=== PATIENT | male | born 2000 | race Caucasian/White ===

== ENCOUNTER 2023-07-17 13:09 | Emergency (ER) | payer BC ==
[2023-07-17] MEDS ORDERED: IBUPROFEN 600 MG TAB PO STA (14:44)
[2023-07-17] MEDS ORDERED: ACETAMINOPHEN TAB 500 MG TAB PO STA (14:44)
--- NOTE | 2023-07-17 14:46 | ED ---
Fever HPI - General Source: patient, RN notes reviewed Mode of arrival: ambulatory Limitations: no limitations <Davian Swenson - Last Filed: 07/17/23 14:45> - History of Present Illness MD Complaint: fever -: days(s) Temperature Source: subjective Associated Symptoms: headache, cough Treatments Prior to Arrival: other (Dexamethasone) <Itz Tomlinson - Last Filed: 07/19/23 12:29> - General Chief Complaint: Fever Stated Complaint: Covid+, symptoms getting worse Time Seen by Provider: 07/17/23 14:45 - History of Present Illness Initial Comments: 23-year-old male presents emergency Department chief complaint of fever. Patient states he tested positive for covid 4 days ago. He states she's had symptoms for 6 days. Patient was seen at a [facility] urgent [facility]. Patient states is not having recent Tylenol Motrin. (Davian Swenson) This patient is 23-year-old man who is here he states because he is continuing to have cough and also headache despite taking the medication he was prescribed. Patient states that he started having symptoms on the first of this month, which included fevers, cough, body ache, headache. He went to the clinic on the second and was diagnosed with Covid infection. They gave him dexamethasone and he is taking mucinex. He states he is continuing to have symptoms. Patient describes the headache as being right frontal, moderately severe, intermittent, lasting about 15-30 seconds at a time and then getting better. He states that pain is sharp. He has not noted relieving factors. Seems to be worse when he coughs. (Itz Tomlinson) - Related Data Previous Rx's Medication Instructions Recorded Azithromycin [Zithromax] 0 mg PO DIRECTED #6 tab 07/17/23 Allergies Allergy/AdvReac Type Severity Reaction Status Date / Time No Known Allergies Allergy Verified 07/17/23 14:10 Review of Systems ROS Other: All systems not noted in ROS Statement are negative. <Davian Swenson - Last Filed: 07/17/23 14:45> ROS Other: All systems not noted in ROS Statement are negative. Constitutional: Reports: fever Eyes: Denies: vision change ENT: Reports: congestion Respiratory: Reports: cough. Denies: dyspnea, hemoptysis Cardiovascular: Denies: chest pain, palpitations, syncope Gastrointestinal: Denies: abdominal pain, vomiting, diarrhea Genitourinary: Denies: dysuria, hematuria Musculoskeletal: Denies: back pain Skin: Denies: rash Neurological: Reports: headache. Denies: weakness, numbness, paresthesias <Itz Tomlinson - Last Filed: 07/19/23 12:29> ROS Statement: Those systems with pertinent positive or pertinent negative responses have been documented in the HPI. Past Medical History Additional Past Medical History / Comment(s): COVID Past Surgical History: No Surgical Hx Reported Past Psychological History: No Psychological Hx Reported Smoking Status: Never smoker Past Alcohol Use History: None Reported Past Drug Use History: None Reported <Davian Swenson - Last Filed: 07/17/23 14:45> General Exam Limitations: no limitations <Davian Swenson - Last Filed: 07/17/23 14:45> General appearance: alert, in no apparent distress Head exam: Present: atraumatic, normocephalic Eye exam: Present: normal appearance. Absent: scleral icterus, conjunctival injection Neck exam: Present: normal inspection, full ROM. Absent: meningismus Respiratory exam: Present: rales. Absent: respiratory distress, wheezes, rhonchi, stridor, accessory muscle use, decreased breath sounds Cardiovascular Exam: Present: normal rhythm, tachycardia (Rate 104 at my exam), normal heart sounds. Absent: systolic murmur, diastolic murmur, rubs, gallop GI/Abdominal exam: Present: soft. Absent: distended, tenderness, guarding, rebound, rigid, mass Extremities exam: Present: normal inspection, normal capillary refill. Absent: pedal edema, calf tenderness Back exam: Present: normal inspection. Absent: CVA tenderness (R), CVA tenderness (L) Neurological exam: Present: alert Skin exam: Present: warm, dry, intact, normal color. Absent: rash <Itz Tomlinson - Last Filed: 07/19/23 12:29> - General Exam Comments Initial Comments: Visual Physical Exam Vital signs reviewed General: Well-appearing, nontoxic, no acute distress. Head: Normocephalic, atraumatic Eyes: PERRLA, EOMI ENT: Airway patent Chest: Nonlabored breathing Skin: No visual rash, normal skin tone Neuro: Alert and oriented 3 Musculoskeletal: No gross abnormalities (Davian Swenson) Course Vital Signs 07/17/23 07/17/23 07/17/23 14:07 15:09 15:14 Temperature 102.9 F H 103.1 F H Pulse Rate 111 H 97 Respiratory 22 18 18 Rate Blood Pressure 111/68 129/86 O2 Sat by Pulse 99 99 Oximetry 07/17/23 07/17/23 15:52 16:39 Temperature 102.9 F H 99.4 F Pulse Rate 100 89 Respiratory 16 18 Rate Blood Pressure 109/68 O2 Sat by Pulse 98 96 Oximetry Medical Decision Making <Davian Swenson - Last Filed: 07/17/23 14:45> <Itz Tomlinson - Last Filed: 07/19/23 12:29> - Medical Decision Making I performed the quick note portion of this chart signed Davian Swenson PA-C (Davian Swenson) This patient is 23-year-old man here with fevers, headache, myalgias, cough and recent diagnosis of COVID-19 infection. The patient did have significant relief here after medication, and stated that the headache had resolved. The workup here does reveal right lower lobe infiltrate, and as it does appear more consistent with traditional pneumonia the patient is started on a course of antibiotics. Discussed appropriate further care and follow-up as well as return parameters. The patient had chest x-ray which I interpreted as showing right lower lobe infiltrate. Was pt. sent in by a medical professional or institution (JUSTICE [facility], NITRILES LAB TECHNICIAN, urgent care, hospital, or alf...) When possible be specific @ -[No] Did you speak to anyone other than the patient for history (EMS, parent, family, police, friend...)? What history was obtained from this source @ -[The patient's mother did contribute history Did you review nursing and triage notes (agree or disagree)? Why? @ -[I reviewed and agree with nursing and triage notes] Were old charts reviewed (outside hosp., previous admission, EMS record, old EKG, old radiological studies, urgent care reports/EKG's, alf records)? Report findings @ -[No old charts were reviewed] Differential Diagnosis (chest pain, altered mental status, abdominal pain women, abdominal pain men, vaginal bleeding, weakness, fever, dyspnea, syncope, headache, dizziness, GI bleed, back pain, seizure, CVA, palpatations, mental health, musculoskeletal)? @ -Differential Fever: Pneumonia, viral URI, endocarditis, myocarditis, pericarditis, otitis, sinusitis, peritonsillar Abscess, retropharyngeal Abscess, epiglottitis, peritonitis, appendicitis, Neida cystitis, diverticulitis, hepatitis, colitis, UTI, PID, TOA, pyelonephritis, prostatitis, epididymitis, meningitis, encephalitis, pulmonary embolism, CVA, thyroid storm, pancreatitis, adrenal regina is, cavernous sinus thrombosis, this is not meant to be an all-inclusive list. EKG interpreted by me (3pts min.). @ -[ X-rays interpreted by me (1pt min.). @ -[I interpreted as above CT interpreted by me (1pt min.). @ -[None done] U/S interpreted by me (1pt. min.). @ -[None done] What testing was considered but not performed or refused? (CT, X-rays, U/S, labs)? Why? @ -[None] What meds were considered but not given or refused? Why? @ -[None] Did you discuss the management of the patient with other professionals (professionals i.e. , PA, N[employer]RILES LAB TECHNICIAN, lab, RT, psych nurse, certified social workers in health care, stenotype machine operator, teacher, loan workout officer, case operator)? Give summary @ -[No] Was smoking cessation discussed for >3mins.? @ -[No] Was critical care preformed (if so, how long)? @ -[No] Were there social determinants of health that impacted care today? How? (Homelessness, low income, unemployed, alcoholism, drug addiction, transportation, low edu. Level, literacy, decrease access to med. care, longterm, rehab)? @ -[No] Was there de-escalation of care discussed even if they declined (Discuss DNR or withdrawal of care, Hospice)? DNR status @ -[No] What co-morbidities impacted this encounter? (DM, HTN, Smoking, COPD, CAD, Cancer, CVA, ARF, Chemo, Hep., AIDS, mental health diagnosis, sleep apnea, morbid obesity)? @ -[None] Was patient admitted / discharged? Hospital course, mention meds given and route, prescriptions, significant lab abnormalities, going to OR and other pertinent info. @ -[As above Undiagnosed new problem with uncertain prognosis? @ -[No] Drug Therapy requiring intensive monitoring for toxicity (Heparin, Nitro, Insulin, Cardizem)? @ -[No] Were any procedures done? @ -[No] Diagnosis/symptom? @ -[Acute right lower lobe pneumonia Acute COVID-19 infection Acute, or Chronic, or Acute on Chronic? @ -[default] Uncomplicated (without systemic symptoms) or Complicated (systemic symptoms)? @ -[Uncomplicated Side effects of treatment? @ -[No] Exacerbation, Progression, or Severe Exacerbation? @ -[No] Poses a threat to life or bodily function? How? (Chest pain, USA, MS, pneumonia, PE, COPD, DKA, ARF, appy, cholecystitis, CVA, Diverticulitis, Homicidal, Suicidal, threat to staff... and all critical care pts) @ -Unlikely at this point (Itz Tomlinson) Disposition <Davian Swenson - Last Filed: 07/17/23 14:45> Is patient prescribed a controlled substance at d/c from ED?: No <Itz Tomlinson - Last Filed: 07/19/23 12:29> Clinical Impression: COVID-19, Pneumonia Disposition: HOME SELF-CARE Condition: Good Instructions (If sedation given, give patient instructions): Pneumonia (ED), COVID-19 (Coronavirus Disease 2019) (ED) Prescriptions: Azithromycin [Zithromax] 0 mg PO DIRECTED #6 tab Referrals: None,Stated [Primary Care Provider] - 1-2 days
--- NOTE | 2023-07-17 15:06 | XR ---
EXAMINATION TYPE: XR chest 2V DATE OF EXAM: 07/17/2023 3:02 PM COMPARISON: Chest radiographs from 02/16/2007 TECHNIQUE: XR chest 2V Frontal and lateral views of the chest. CLINICAL INDICATION:Male, 23 years old with history of sob,covid; FINDINGS: Lungs/Pleura: No pleural effusion or pneumothorax. Right lower lobe patchy airspace opacities. Pulmonary vascularity: Unremarkable. Heart/mediastinum: Cardiomediastinal silhouette is unremarkable. Musculoskeletal: No acute osseous pathology. IMPRESSION: Right lower lobe patchy airspace opacities consistent with pneumonia.
[2023-07-17] MEDS ORDERED: METOCLOPRAMIDE 5 MG/ML 2 ML VIAL IM STA (15:18)
[2023-07-17] MEDS ORDERED: diphenhydrAMINE 50 MG/ML 1 ML VIAL IM STA (15:18)
[2023-07-17] MEDS ORDERED: AZITHROMYCIN 500 MG TAB PO STA (15:21)
[2023-07-17 16:40] VITALS: BP 109/68; PULSE 89; RESP 18; TEMP 99.4
== END 2023-07-17 18:15 | disposition home or self-care (01) ==
LOC: EC 13:09
DX: U07.1 COVID-19 (principal); J12.82 Pneumonia due to coronavirus disease 2019
CPT/HCPCS: 71046; 99283; 96372 ×2; J1200; J2765